=== PATIENT | male | born 1950 | race Two or more races ===

== ENCOUNTER → 2019-05-10 | Outpatient (CLI) | payer MEDICARE, BC ==
[2019-05-10 12:25] LABS: ABSOLUTE EOSINOPHILS # (AUTO) 0.1 10^3/uL (0.0-0.6); ABSOLUTE LYMPHOCYTES (AUTO) 1.1 10^3/uL (0.5-4.7); ABSOLUTE MONOCYTES (AUTO) 0.4 10^3/uL (0.1-1.4); ABSOLUTE NEUT (AUTO) 2.3 10^3/uL (1.7-8.2); BASOPHILS % (AUTO) 0.8 % (0-2); EOSINOPHILS % (AUTO) 2.5 % (0-6); HEMATOCRIT 37.2 % (37.9-51.0); HEMOGLOBIN 12.3 g/dL (13.5-17.0); LYMPHOCYTES % (AUTO) 28.4 % (13-45); MEAN CORPUSCULAR HEMOGLOBIN 26.3 pg (27.0-33.4); MEAN CORPUSCULAR HGB CONC 33.2 g/dL (32.0-36.0); MEAN CORPUSCULAR VOLUME 79 fl (80-97); MONOCYTES % (AUTO) 11.2 % (3-13); PLATELET COUNT 150 10^3/uL (150-450); RED CELL DISTRIBUTION WIDTH 13.5 % (11.5-14.0); SEGMENTED NEUTROPHILS % (AUTO) 57.1 % (42-78); TOTAL CELLS COUNTED % (AUTO) 100 %
[2019-05-10 12:55] LABS: ALBUMIN 4.3 g/dL (3.5-5.0); ALKALINE PHOSPHATASE 82 U/L (38-126); ANION GAP 9 (5-19); ASPARTATE AMINO TRANSFERASE 19 U/L (17-59); BILIRUBIN,DIRECT 0.1 mg/dL (0.0-0.4); BILIRUBIN,TOTAL 0.7 mg/dL (0.2-1.3); BLOOD UREA NITROGEN 18 mg/dL (7-20); C-REACTIVE PROTEIN 12.3 mg/L (<10.0); CALCIUM 9.5 mg/dL (8.4-10.2); CARBON DIOXIDE 30 mmol/L (22-30); CHLORIDE 102 mmol/L (98-107); GLUCOSE 236 mg/dL (75-110); POTASSIUM 4.8 mmol/L (3.6-5.0); TOTAL PROTEIN 7.4 g/dL (6.3-8.2)
[2019-05-10 13:10] LABS: ERYTHROCYTE SEDIMENTATION RATE 23 mm/hr (0-20)
--- NOTE | 2019-05-10 16:51 | XCELERA REPORT ---
[address] [address] Lower Extremity Arterial Evaluation Name: TOREY URBINA Age: 69 yrs Gender: Male : 1950 Patient Status: Outpatient Patient Location: Study Date: 05/10/2019 11:16 AM Procedure: A color flow and duplex scan of the lower extremity arteries was performed bilaterally with velocity and waveform anaylsis. Ankle brachial indicies performed. 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 . Ankle Brachial index 1.27. Left Side Arterial Evaluation Normal velocity and triphasic waveforms noted from the Common Femoral artery to the infrageniculate vessels . . Ankle Brachial index 1.38. Interpretation Summary No hemodynamically significant lesions in the bilateral lower extremities, on duplex imaging, at rest. HECTOR's in high normal range. Suggesting no significant obstructive disease. : SHELBY ANNE > Omid Sims
== END ==
LOC: SP 11:08
PROVIDERS: ATTEND Nurse Practitioner Family
DX: E11.621 Type 2 diabetes mellitus with foot ulcer (principal); L97.222 Non-pressure chronic ulcer of left calf with fat layer exposed
CPT/HCPCS: 36415; 80053; 83036; 85025; 85652; 86140; 93922; 93925

== ENCOUNTER 2019-07-21 15:08 | Emergency (ER) | payer MEDICARE, BC ==
[~2019-07-21 15:08] MED LIST: AMIODARONE HCL INJ 150 MG/3 ML VIAL IV ONE; CALCIUM GLUCONATE 1000 MG/10 ML INJ IV ONE; EPINEPHRINE INJ 1 MG/10 ML DISP.SYRIN ONE; ETOMIDATE INJ/PF 20 MG/10 ML SDV IV ONE; SODIUM BICARBONATE 8.4% INJ 50 MEQ/50 ML DISP.SYRIN ONE; SUCCINYLCHOLINE CHLORIDE INJ 200 MG/10 ML VIAL ONE
[2019-07-21] MEDS ORDERED: ONDANSETRON HCL INJ/PF 4 MG/2 ML SDV IV ONE (15:40)
[2019-07-21] MEDS ORDERED: MORPHINE SULFATE 10 MG/ML INJ IV ONE (15:40)
--- NOTE | 2019-07-21 16:04 | RADIOLOGY REPORT (SQ) ---
EXAM DESCRIPTION: PELVIS AP COMPLETED DATE/TIME: 07/21/2019 3:46 pm REASON FOR STUDY: fall COMPARISON: None. NUMBER OF VIEWS: One view TECHNIQUE: AP Pelvis LIMITATIONS: None. FINDINGS: MINERALIZATION: Normal. HIPS: Degenerative joint changes are present in the right hip. There is some deformity of the right femoral head. PELVIS AND SACRUM: No acute fracture or dislocation. No worrisome bone lesions. PUBIS AND ISCHIUM: There are fractures of the superior and inferior pubic rami on the right. LOWER LUMBAR SPINE: No significant findings as visualized. SOFT TISSUES: No findings. OTHER: No other significant finding. IMPRESSION: Pubic ramus fractures on the right. Degenerative joint changes in the right hip. COMMENT: Pelvic fractures are often occult on plain radiographs. If strong clinical suspicion for f racture, recommend CT or MR. TECHNICAL DOCUMENTATION: JOB ID: [id number] [email or web address]- All Rights Reserved Reading location - IP/workstation name: [email or web address]
--- NOTE | 2019-07-21 16:08 | RADIOLOGY REPORT (SQ) ---
EXAM DESCRIPTION: CHEST SINGLE VIEW COMPLETED DATE/TIME: 07/21/2019 3:46 pm REASON FOR STUDY: fall COMPARISON: PA view of the chest from 07/12/2014. EXAM PARAMETERS: NUMBER OF VIEWS: One view. TECHNIQUE: An AP view of the chest was obtained. RADIATION DOSE: NA LIMITATIONS: None. FINDINGS: LUNGS AND PLEURA: No consolidation, pleural effusion or pneumothorax. MEDIASTINUM AND HILAR STRUCTURES: No mediastinal or hilar contour abnormality. HEART AND VASCULAR STRUCTURES: The cardiac silhouette is enlarged. BONES: Fracture deformities of the right posterolateral 6th, 7th and 8th ribs. HARDWARE: None in the chest. OTHER: No other finding. IMPRESSION: 1. Cardiomegaly without a superimposed acute cardiopulmonary process. 2. Fractures of the right posterolateral 6th, 7th and 8th ribs without an associated pneumothorax. TECHNICAL DOCUMENTATION: JOB ID: [id number] [employer]- All Rights Reserved Reading location - IP/workstation name: [email or web address]
[2019-07-21 17:13] LABS: HEMATOCRIT 37.4 % (37.9-51.0); HEMOGLOBIN 12.3 g/dL (13.5-17.0); MEAN CORPUSCULAR HEMOGLOBIN 26.1 pg (27.0-33.4); MEAN CORPUSCULAR VOLUME 79 fl (80-97); PLATELET COUNT 179 10^3/uL (150-450); RED BLOOD COUNT 4.73 10^6/uL (4.35-5.55); RED CELL DISTRIBUTION WIDTH 13.9 % (11.5-14.0); WHITE BLOOD COUNT 12.5 10^3/uL (4.0-10.5)
[2019-07-21 17:18] LABS: INTERNATIONAL RATION (INR) 1.25; PROTHROMBIN TIME 15.8 SEC (11.4-15.4)
--- NOTE | 2019-07-21 17:21 | ER Document Report ---
ED General - General Chief Complaint: Fall Stated Complaint: FALL Time Seen by Provider: 07/21/19 15:18 Primary Care Provider: GINNY RICHMOND MD [Primary Care Provider] - Follow up as needed TRAVEL OUTSIDE OF THE [place] IN LAST 30 DAYS: No - HPI Patient complains to provider of: fall Onset: Just prior to arrival Onset/Duration: Sudden Context: 69 year old male with hld, cad, LBBB, DM fell on a ladder a short time prior to arrival here. Reportedly about 6 feet up on 8 foot ladder which slid down to floor. First responders found him prone and complaining of right side hip pain and right flank pain. A collar was put in place and he was brought here without incident. O2 saturation about 90% upon arrival and no complaints of chest pain or shortness of breath. Exacerbated by: Denies Relieved by: Denies - Related Data Allergies/Adverse Reactions: No Known Allergies Allergy (Unverified 07/12/14 20:06) Past Medical History - Social History Smoking Status: Former Smoker Family History: Reviewed & Not Pertinent Patient has suicidal ideation: No Patient has homicidal ideation: No - Past Medical History Cardiac Medical History: Reports: Hx Heart Attack, Hx Hypertension Endocrine Medical History: Reports: Hx Diabetes Mellitus Type 1 Past Surgical History: Reports: Hx Cardiac Catheterization - stents x 3 - Immunizations Hx Pneumococcal Vaccination: 03/07/12 Review of Systems - Review of Systems Constitutional: No symptoms reported EENT: No symptoms reported Cardiovascular: No symptoms reported Respiratory: No symptoms reported Gastrointestinal: No symptoms reported Genitourinary: No symptoms reported Male Genitourinary: No symptoms reported Musculoskeletal: See HPI, Back pain, Joint pain - Right sided flank pain. No shortenning or deformity., Other Skin: No symptoms reported Hematologic/Lymphatic: No symptoms reported Neurological/Psychological: No symptoms reported Physical Exam - Vital signs Vitals: Temp Resp Pulse Ox 99.0 F 30 H 81 L 07/21/19 15:14 07/21/19 15:14 07/21/19 15:14 Interpretation: Normal - General General appearance: Alert, Other - Appears to be in pain - mild distress. - HEENT Head: Normocephalic, Atraumatic Eyes: Normal Pupils: PERRL - Respiratory Respiratory status: No respiratory distress Chest status: Nontender, Other - no criptance or subq emphysema Breath sounds: Normal Chest palpation: Normal. No: Subcutaneous emphysema, Tender - Cardiovascular Rhythm: Regular Heart sounds: Normal auscultation Murmur: No - Abdominal Inspection: Normal Distension: Distended - Umbilical hernia with obese abd. Bowel sounds: Normal Tenderness: Nontender Organomegaly: No organomegaly - Back Back: Normal, Tender - right sided paraspinal ttp. No: Nontender - Extremities General upper extremity: Normal inspection, Nontender, Normal color, Normal ROM, Normal temperature General lower extremity: Normal inspection, Nontender, Normal color, Normal ROM, Normal temperature, Other - chronic venous changes bilaterally. No: Normal weight bearing, Vianca's sign - Neurological Neuro grossly intact: Yes Cognition: Normal Orientation: AAOx4 Lai Coma Scale Eye Opening: Spontaneous Lai Coma Scale Verbal: Oriented Lai Coma Scale Motor: Obeys Commands Lai Coma Scale Total: 15 Speech: Normal Motor strength normal: LUE, RUE, LLE, RLE Sensory: Normal - Psychological Associated symptoms: Normal affect, Normal mood - Skin Skin Temperature: Warm Skin Moisture: Dry Skin Color: Normal Course - Re-evaluation Re-evalutation: 07/21/19 21:50 MDM 69 year old male with fall and right sided pelvis fractures along with right sided posterior lateral rib fractures without pneumo. Not terribly healthy at baseline with h/o htn, dm, cad and lbbb at baseline. Sats better here on 50% O2. 07/21/19 21:53 Pt was sent to Ct to search for other fractures and the possibility of small penumothorax which was not visible on plain films. Shortly after returning from Ct he began being more difficult to oxygenate - O2 sat dropped below 90% despite 50% mask and decision was made to intubate the pt. He was bagged to O2 sat in the high 90's and good color was noted. He was induced with 20 mg etomidate and then 200mg of Succhylcholine was administered. On the second attempt after possibly the tube being moved he was intubated without difficulty with good visualization of the tube passing through the cords, good color change and normal bilateral breath sounds. In the corona intubation time the pt lost his pulse and CPR was initiated. A code was run for a period of approximately 45 minutes without ROSC. He had a persistent PEA rhythm with a few scattered episodes of V tach which were unsuccessfully shocked. Amiodarone also was used with out success. I discussed these events with the family - and sons - and they were brought into the resussitation room for the last 10-15 minutes of the code. The code was eventually called and the pt was pronounced . - Vital Signs Vital signs: Temp Pulse Resp BP Pulse Ox 99.0 F 33 H 46/24 L 74 L 07/21/19 15:14 07/21/19 19:01 07/21/19 19:01 07/21/19 18:56 - Laboratory Result Diagrams: 07/21/19 17:00 07/21/19 17:00 Laboratory results interpreted by me: 07/21/19 07/21/19 07/21/19 17:00 17:00 17:00 WBC 12.5 H Hgb 12.3 L Hct 37.4 L MCV 79 L MCH 26.1 L Abs Neuts (Manual) 9.9 H PT 15.8 H Sodium 136.6 L Potassium 5.8 H Carbon Dioxide 31 H Glucose 257 H POC Glucose Urine Protein Urine Glucose (UA) Urine Blood Urine Ascorbic Acid 07/21/19 07/21/19 17:30 19:18 WBC Hgb Hct MCV MCH Abs Neuts (Manual) PT Sodium Potassium Carbon Dioxide Glucose POC Glucose 291 H Urine Protein >=500 H Urine Glucose (UA) >=500 H Urine Blood MODERATE H Urine Ascorbic Acid 20 H - Diagnostic Test Radiology reviewed: Reports reviewed - EKG Interpretation by Me EKG shows normal: Sinus rhythm Rate: Normal Rhythm: NSR Cucumber/QRS: LBBB - NSR LBBB Left Cucumber [address] elevation or depression my interpretation. Critical Care Note - Critical Care Note Total time excluding time spent on procedures (mins): 30 Discharge - Discharge Clinical Impression: Cardiopulmonary arrest, Respiratory arrest Diabetes mellitus Qualifiers: Diabetes mellitus type: type 2 Diabetes mellitus longterm insulin use: with longterm use Diabetes mellitus complication status: with hyperglycemia Qualified Code(s): E11.65 - Type 2 diabetes mellitus with hyperglycemia CAD (coronary artery disease) Qualifiers: Coronary Disease-Associated Artery/Lesion type: unspecified vessel or lesion type [place] vs. transplanted heart: [place] heart Associated angina: with unspecified angina Qualified Code(s): I25.119 - Atherosclerotic heart disease of [place] coronary artery with unspecified angina pectoris Pubic ramus fracture Qualifiers: Encounter type: initial encounter Fracture type: closed Laterality: right Qualified Code(s): S32.591A - Other specified fracture of right pubis, initial encounter for closed fracture Rib fractures Qualifiers: Encounter type: initial encounter Rib fracture type: multiple ribs Fracture type: closed Laterality: right Qualified Code(s): S22.41XA - Multiple fractures of ribs, right side, initial encounter for closed fracture Condition: Good Disposition: Referrals: GINNY RICHMOND MD [Primary Care Provider] - Follow up as needed
[2019-07-21 17:33] LABS: ALBUMIN 4.3 g/dL (3.5-5.0); ALKALINE PHOSPHATASE 101 U/L (38-126); ANION GAP 7 (5-19); ASPARTATE AMINO TRANSFERASE 59 U/L (17-59); BILIRUBIN,DIRECT 0.2 mg/dL (0.0-0.4); BLOOD UREA NITROGEN 19 mg/dL (7-20); CALCIUM 9.6 mg/dL (8.4-10.2); CARBON DIOXIDE 31 mmol/L (22-30); CHLORIDE 99 mmol/L (98-107); GLUCOSE 257 mg/dL (75-110); POTASSIUM 5.8 mmol/L (3.6-5.0); TOTAL PROTEIN 7.6 g/dL (6.3-8.2)
[2019-07-21 17:38] LABS: ABSOLUTE LYMPHOCYTES# (MANUAL) 1.9 10^3/uL (0.5-4.7); ABSOLUTE MONOCYTES # (MANUAL) 0.8 10^3/uL (0.1-1.4); BAND NEUTROPHILS % (MANUAL) 5 % (3-5); BASOPHILS % (MANUAL) 0 % (0-2); EOSINOPHILS % (MANUAL) 0 % (0-6); LYMPHOCYTES % (MANUAL) 15 % (13-45); MONOCYTES % (MANUAL) 6 % (3-13); SEGMENTED NEUTROPHILS % (MAN) 74 % (42-78); TOTAL CELLS COUNTED 100
[2019-07-21 17:39] LABS: PLATELET COMMENT ADEQUATE
--- NOTE | 2019-07-21 18:24 | RADIOLOGY REPORT (SQ) ---
EXAM DESCRIPTION: CT HEAD WITHOUT COMPLETED DATE/TIME: 07/21/2019 6:14 pm REASON FOR STUDY: fall COMPARISON: None. TECHNIQUE: Axial images acquired through the brain without intravenous contrast. Images reviewed wi th bone, brain and subdural windows. Additional sagittal and coronal reconstructions were generated. Images stored on PACS. All CT scanners at this facility use dose modulation, iterative reconstruction, and/or weight based d osing when appropriate to reduce radiation dose to as low as reasonably achievable (ALARA). [facility]: Dose Right [facility]: CareDose [facility]: Dose Right [facility]: Teradose 4D [facility]: [employer] RADIATION DOSE: mGy. LIMITATIONS: Motion. FINDINGS: VENTRICLES: Prominent. CEREBRUM: No masses. No hemorrhage. No midline shift. Areas of low density in the white matter mos t likely due to chronic micro-vascular ischemic change. No evidence for acute infarction. CEREBELLUM: No masses. No hemorrhage. No alteration of density. No evidence for acute infarction. EXTRAAXIAL SPACES: Mild age-related involutional change. No fluid collections. No masses. ORBITS AND GLOBE: No intra- or extraconal masses. Normal contour of globe without masses. CALVARIUM: No fracture. PARANASAL SINUSES: No fluid or mucosal thickening. SOFT TISSUES: No mass or hematoma. OTHER: No other significant finding. IMPRESSION: MILD CHRONIC CHANGES OF ATROPHY AND MICROVASCULAR ISCHEMIA. NO ACUTE PROCESS. EVIDENCE OF ACUTE STROKE: NO. TECHNICAL DOCUMENTATION: JOB ID: [id number] Quality ID # [id number]: Final reports with documentation of one or more dose reduction techniques (e.g., Au tomated exposure control, adjustment of the mA and/or kV according to patient size, use of iterative reconstruction technique) 2010 [employer]- All Rights Reserved Reading location - IP/workstation name: [email or web address]
--- NOTE | 2019-07-21 18:25 | RADIOLOGY REPORT (SQ) ---
EXAM DESCRIPTION: CT CERVICAL SPINE WITHOUT COMPLETED DATE/TIME: 07/21/2019 6:14 pm REASON FOR STUDY: fall/ injury COMPARISON: None. TECHNIQUE: Axial images acquired through the cervical spine without intravenous contrast. Images re viewed with lung, soft tissue and bone windows. Reconstructed coronal and sagittal MPR images review ed. Images stored on PACS. All CT scanners at this facility use dose modulation, iterative reconstruction, and/or weight based d osing when appropriate to reduce radiation dose to as low as reasonably achievable (ALARA). [facility]: Dose Right [facility]: CareDose [facility]: Dose Right [facility]: Teradose 4D [facility]: [employer] RADIATION DOSE: CT Rad equipment meets quality standard of care and radiation dose reduction techniq ues were employed. CTDIvol: 22.4 - 53.2 mGy. DLP: 1540 mGy-cm. mGy. LIMITATIONS: Motion artifact. FINDINGS: ALIGNMENT: Anatomic. MINERALIZATION: Normal. VERTEBRAL BODIES: No fractures or dislocation. DISCS: Multilevel disc space narrowing with osteophytes. FACETS, LATERAL MASSES, POSTERIOR ELEMENTS: Facet arthropathy. No fractures. No dislocation. No ac bishop paiute findings. HARDWARE: None in the spine. VISUALIZED RIBS: No fractures. LUNG APICES AND SOFT TISSUES: No significant or acute findings. OTHER: No other significant finding. IMPRESSION: CHRONIC DEGENERATIVE CHANGES. NO ACUTE FINDINGS. TECHNICAL DOCUMENTATION: JOB ID: [id number] Quality ID # [id number]: Final reports with documentation of one or more dose reduction techniques (e.g., Au tomated exposure control, adjustment of the mA and/or kV according to patient size, use of iterative reconstruction technique) 2010 [employer]- All Rights Reserved Reading location - IP/workstation name: [email or web address]
--- NOTE | 2019-07-21 18:31 | RADIOLOGY REPORT (SQ) ---
EXAM DESCRIPTION: CT ABD/PELVIS WITH IV ONLY COMPLETED DATE/TIME: 07/21/2019 6:14 pm REASON FOR STUDY: fall/ right flank pain COMPARISON: None. TECHNIQUE: CT scan of the abdomen and pelvis performed using helical scanning technique with dynamic intravenous contrast injection. No oral contrast. Images reviewed with lung, soft tissue, and bone windows. Reconstructed coronal and sagittal MPR images reviewed. Delayed images for evaluation of the urinary system also acquired. All images stored on PACS. All CT scanners at this facility use dose modulation, iterative reconstruction, and/or weight based d osing when appropriate to reduce radiation dose to as low as reasonably achievable (ALARA). [facility]: Dose Right [facility]: CareDose [facility]: Dose Right [facility]: Teradose 4D [facility]: [employer] CONTRAST TYPE AND DOSE: contrast/concentration: Isovue 350.00 mg/ml; Total Contrast Delivered: 96.0 ml; Total Saline Delivered: 42.7 ml RENAL FUNCTION: GFR > 60. RADIATION DOSE: . LIMITATIONS: Motion artifact. FINDINGS: LOWER CHEST: See separate report of the CT of the chest. LIVER: Normal size. No masses. No dilated ducts. SPLEEN: Normal size. No focal lesions. PANCREAS: No masses. No significant calcifications. No adjacent inflammation or peripancreatic fluid collections. Pancreatic duct not dilated. GALLBLADDER: No identified stones by CT criteria. No inflammatory changes to suggest cholecystitis. ADRENAL GLANDS: No significant masses or asymmetry. RIGHT KIDNEY AND URETER: No solid masses. No significant calcifications. No hydronephrosis or hyd roureter. LEFT KIDNEY AND URETER: No solid masses. No significant calcifications. No hydronephrosis or hydr oureter. AORTA AND VESSELS: No aneurysm. RETROPERITONEUM: No retroperitoneal adenopathy, hemorrhage or masses. BOWEL AND PERITONEAL CAVITY: No masses or inflammatory changes. No free fluid or peritoneal masses. APPENDIX: Not visualized. PELVIS: No mass. No free fluid. Normal bladder. ABDOMINAL WALL: No masses. No hernias. BONES: Compression fracture of L5 approximately 20% height loss. No significant retropulsion. Fract ure right sacral ala, nondisplaced. OTHER: No other significant finding. IMPRESSION: Compression fracture L5 without significant retropulsion. Fracture of the right sacrum. TECHNICAL DOCUMENTATION: JOB ID: [id number] Quality ID # [id number]: Final reports with documentation of one or more dose reduction techniques (e.g., Au tomated exposure control, adjustment of the mA and/or kV according to patient size, use of iterative reconstruction technique) 2010 [employer]- All Rights Reserved Reading location - IP/workstation name: [email or web address]
--- NOTE | 2019-07-21 18:34 | RADIOLOGY REPORT (SQ) ---
EXAM DESCRIPTION: CT CHEST WITH COMPLETED DATE/TIME: 07/21/2019 6:14 pm REASON FOR STUDY: fall/ hypoxia COMPARISON: None. TECHNIQUE: CT scan of the chest performed using helical scanning technique with dynamic intravenous contrast injection. Images reviewed with lung, soft tissue and bone windows. Reconstructed coronal and sagittal MPR and MIP images reviewed. All images stored on PACS. All CT scanners at this facility use dose modulation, iterative reconstruction, and/or weight based d osing when appropriate to reduce radiation dose to as low as reasonably achievable (ALARA). [facility]: Dose Right [facility]: CareDose [facility]: Dose Right [facility]: Teradose 4D [facility]: [employer] CONTRAST TYPE AND DOSE: See separate report of the same date. RENAL FUNCTION: See separate report. RADIATION DOSE: CT Rad equipment meets quality standard of care and radiation dose reduction techniq ues were employed. CTDIvol: 19.4 - 20.9 mGy. DLP: 2769 mGy-cm. . LIMITATIONS: Motion. FINDINGS: LUNGS AND PLEURA: No evidence of pulmonary contusion or pneumothorax. Diffuse interlobula r septal thickening. No infiltrate. HILAR AND MEDIASTINAL STRUCTURES: No identified masses or abnormal nodes. HEART AND VASCULAR STRUCTURES: No aneurysm or dissection. No central pulmonary emboli. No pericardi al effusion. HARDWARE: None in the chest. UPPER ABDOMEN: See separate report of the CT of the abdomen. THYROID AND OTHER SOFT TISSUES: No masses. No adenopathy. BONES: Compression fracture T12 less than 20% height loss. No significant retropulsion. OTHER: No other significant finding. IMPRESSION: Compression fracture T12. No significant retropulsion. TECHNICAL DOCUMENTATION: JOB ID: [id number] Quality ID # [id number]: Final reports with documentation of one or more dose reduction techniques (e.g., Au tomated exposure control, adjustment of the mA and/or kV according to patient size, use of iterative reconstruction technique) 2010 [employer]- All Rights Reserved Reading location - IP/workstation name: [email or web address]
[2019-07-21] MEDS ORDERED: ETOMIDATE INJ/PF 20 MG/10 ML SDV IV ONE (18:55)
[2019-07-21] MEDS ORDERED: PROPOFOL 1,000 MG/100 ML INFUS..BTL IV PRN (18:56)
[2019-07-21] MEDS ORDERED: SUCCINYLCHOLINE CHLORIDE INJ 200 MG/10 ML VIAL IV ONE (18:56)
[2019-07-21] MEDS ORDERED: SODIUM BICARBONATE 8.4% INJ 50 MEQ/50 ML DISP.SYRIN ONE (19:27)
[2019-07-21 20:59] VITALS: BP 46/24
[2019-07-21 21:00] LABS: APPEARANCE,URINE SLIGHTLY-CLOUDY; BILIRUBIN,URINE NEGATIVE (NEGATIVE); GLUCOSE, URINE >=500 mg/dL (NEGATIVE); KETONES,URINE NEGATIVE (NEGATIVE); LEUKOCYTE ESTERASE,URINE NEGATIVE (NEGATIVE); NITRITE,URINE NEGATIVE (NEGATIVE); PROTEIN,URINE >=500 mg/dL (NEGATIVE); URINE SPECIFIC GRAVITY 1.038; UROBILINOGEN,URINE NEGATIVE mg/dL (<2.0)
[2019-07-21 21:04] LABS: COLOR,URINE RED
--- NOTE | 2019-07-22 01:02 | EKG REPORT ---
SEVERITY:- ABNORMAL ECG - SINUS RHYTHM LEFT BUNDLE BRANCH BLOCK : Confirmed by: Monika Pompa MD 22-Jul-2019 01:01:52
== END 2019-07-21 20:45 | disposition expired ==
LOC: ER 15:08
DX: I46.9 Cardiac arrest, cause unspecified (principal); R09.2 Respiratory arrest; E11.65 Type 2 diabetes mellitus with hyperglycemia; I25.119 Atherosclerotic heart disease of native coronary artery with unspecified angina pectoris; S32.591A Other specified fracture of right pubis, initial encounter for closed fracture; S22.41XA Multiple fractures of ribs, right side, initial encounter for closed fracture; R10.9 Unspecified abdominal pain; W11.XXXA Fall on and from ladder, initial encounter; K42.9 Umbilical hernia without obstruction or gangrene; I10 Essential (primary) hypertension; I25.2 Old myocardial infarction
CPT/HCPCS: 99291; 92950; 96374; 96375; 36415; 82962; 85025; 85610; 80053; 81001; 71045; 72170; 70450; 71260; 72125; 74177; 93005; 93010; 31500; J0610; J0171; J2270; J3490 ×2; J0330; J2405; J0282